=== PATIENT | male | born 1980 | race Caucasian/White ===

== ENCOUNTER 2018-04-13 08:25 | Emergency (ER) | payer MEDICAID ==
[2018-04-13 08:38] VITALS: TEMP 98.6
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
[2018-04-13 09:21] VITALS: BMI 31.6
--- NOTE | 2018-04-13 10:33 | RAD ---
Date of service: 04/13/2018 PROCEDURE: Right Knee Radiographs. HISTORY: R knee pain. r/o fracture COMPARISON: None. FINDINGS: BONES: Normal. No fracture. JOINTS: Normal. No osteoarthritis. JOINT EFFUSION: None. OTHER FINDINGS: None. IMPRESSION: Normal radiographs of the right knee.
[2018-04-13 11:35] VITALS: BP 130/67; PULSE 79; RESP 19; O2SAT 100
== END 2018-04-13 11:23 | disposition home or self-care (01) ==
LOC: EDBD → ED 08:25
DX: S80.01XA Contusion of right knee, initial encounter (principal); S83.91XA Sprain of unspecified site of right knee, initial encounter; W01.0XXA Fall on same level from slipping, tripping and stumbling without subsequent striking against object, initial encounter; Y92.89 Other specified places as the place of occurrence of the external cause